=== PATIENT | male | born 1980 | race Two or more races ===

== ENCOUNTER 2024-03-21 05:29 | Inpatient (IN) | payer OTHER ==
[~2024-03-21] VITALS: Ht 185.4 cm; Wt 117.7 kg
[2024-03-21 07:35] VITALS: PULSE 63; RESP 16; O2SAT 98
[2024-03-21] MEDS: SODIUM CHLORIDE 0.9% 500 ML IV ONE (08:45)
[2024-03-21 09:23] LABS: Basophils # (auto) 0 10 ^3/uL (0-0.2); Basophils % (auto) 0.5 % (0.0-2.0); Eosinophils # (auto) 0.1 10 ^3/uL (0-0.8); Eosinophils % (auto) 1.5 % (0.0-7.0); Hematocrit 43.3 % (41.0-53.0); Hemoglobin 15.3 g/dL (13.5-17.5); Lymphocytes # (auto) 1.5 10 ^3/uL (0.4-5.4); Lymphocytes % (auto) 31.6 % (10.0-50.0); Mean Corpuscular Hemoglobin 30.8 pg (28.0-32.0); Mean Corpuscular Hgb Conc. 35.4 g/dL (32.0-36.0); Mean Corpuscular Volume 86.9 fL (80.0-100.0); Monocytes # (auto) 0.4 10 ^3/uL (0-1.3); Monocytes % (auto) 8.9 % (0.0-12.0); Neutrophils # (auto) 2.7 10 ^3/uL (1.6-8.6); Neutrophils % (auto) 57.5 % (37.0-80.0); Nucleated Red Blood Cells % 0.2 %; Platelet Count (auto) 109 10^3/uL (140-450); Red Blood Cells 4.98 10^6/uL (4.5-5.90); Red Cell Distribution Width 13.6 % (11.8-14.3); White Blood Cell 4.7 10^3/uL (4.4-10.8)
[2024-03-21 09:40] LABS: INR 0.98 (0.9-1.15); Partial Thromboplastin Time 26.3 SEC (24.5-34.5); Prothrombin Time 10.6 sec (9.3-11.8)
[2024-03-21 09:45] LABS: Alanine Aminotransferase 77 U/L (7-40); Albumin 4.2 g/dL (3.2-4.8); Alkaline Phosphatase 69 U/L (46-116); Anion Gap 6 (5-15); Aspartate Aminotransferase 45 U/L (13-40); BUN/Creatinine Ratio 13.3 (10.0-20.0); Blood Urea Nitrogen 17 mg/dL (9-23); Calcium 9.1 mg/dL (8.7-10.4); Carbon Dioxide 26 mmol/L (20-30); Chloride 109 mmol/L (98-107); Glucose 102 mg/dL (74-106); Magnesium 2.2 mg/dL (1.6-2.6); Potassium 4.2 mmol/L (3.5-5.1); Sodium 141 mmol/L (136-145)
[2024-03-21 09:46] LABS: Bilirubin, Total 1.1 mg/dL (0.2-1.0); Total Protein 6.5 g/dL (5.7-8.2)
[2024-03-21] MEDS: HYDROmorphone HCL 2 MG/ML VL/or syr IV ONE (10:29)
[2024-03-21] MEDS: METOCLOPRAMIDE HCL 5MG/ml INJ 2ml VIAL IV ONE (10:29)
[2024-03-21] MEDS: SODIUM CHLORIDE 0.9% 1,000 ML IV ONE (10:48)
[2024-03-21] MEDS ORDERED: NITROGLYCERIN 0.4 MG SL TAB SL PRN (12:15)
[2024-03-21] MEDS ORDERED: DOCUSATE SOD 100 MG CAP PO PRN (12:15)
[2024-03-21] MEDS ORDERED: ONDANSETRON HCL 4 MG/2 ML VIAL IV PRN (12:15)
[2024-03-21] MEDS: PANTOPRAZOLE 40 MG/10 ML VIAL INJ IV ONE (13:05)
[2024-03-21] MEDS: SODIUM CHLORIDE 0.9% 1,000 ML IV SCH (13:15)
[2024-03-21] MEDS: PANTOPRAZOLE 40 MG/10 ML VIAL INJ IV SCH (21:06)
[2024-03-22] VITALS (7 sets, daily range): BP systolic 121–145; BP diastolic 70–98; PULSE 56–68; RESP 16–20; TEMP 94.4–97.9; O2SAT 95–97
[2024-03-22] MEDS ORDERED: PANT40T PO (01:44)
[2024-03-22] MEDS ORDERED: ALBU108A5 INH (01:44)
[2024-03-22] MEDS ORDERED: SUMA50TA16 PO (01:44)
[2024-03-22] MEDS ORDERED: AMPH1TAB PO (01:44)
[2024-03-22 08:13] LABS: Basophils # (auto) 0 10 ^3/uL (0-0.2); Basophils % (auto) 0.5 % (0.0-2.0); Eosinophils # (auto) 0.1 10 ^3/uL (0-0.8); Eosinophils % (auto) 1.8 % (0.0-7.0); Hematocrit 43.6 % (41.0-53.0); Hemoglobin 15.2 g/dL (13.5-17.5); Lymphocytes # (auto) 1.4 10 ^3/uL (0.4-5.4); Mean Corpuscular Hemoglobin 30.4 pg (28.0-32.0); Mean Corpuscular Hgb Conc. 34.9 g/dL (32.0-36.0); Mean Corpuscular Volume 86.9 fL (80.0-100.0); Monocytes # (auto) 0.3 10 ^3/uL (0-1.3); Neutrophils # (auto) 2.5 10 ^3/uL (1.6-8.6); Neutrophils % (auto) 56.7 % (37.0-80.0); Nucleated Red Blood Cells % 0.2 %; Platelet Count (auto) 104 10^3/uL (140-450); Red Blood Cells 5.02 10^6/uL (4.5-5.90); Red Cell Distribution Width 13.3 % (11.8-14.3); White Blood Cell 4.4 10^3/uL (4.4-10.8)
[2024-03-22 08:34] LABS: Alanine Aminotransferase 71 U/L (7-40); Albumin 3.9 g/dL (3.2-4.8); Alkaline Phosphatase 65 U/L (46-116); Anion Gap 6 (5-15); Aspartate Aminotransferase 35 U/L (13-40); BUN/Creatinine Ratio 7.9 (10.0-20.0); Blood Urea Nitrogen 9 mg/dL (9-23); Calcium 9.3 mg/dL (8.7-10.4); Carbon Dioxide 24 mmol/L (20-30); Chloride 110 mmol/L (98-107); Glucose 103 mg/dL (74-106); Sodium 140 mmol/L (136-145); Total Protein 6.2 g/dL (5.7-8.2)
[2024-03-22] MEDS: MORPHINE SULFATE INJ 2 MG/ml SYRG IV PRN (09:15)
[2024-03-22] MEDS ORDERED: DICYCLOMINE HCL 10 MG CAP PO PRN (10:15)
[2024-03-22 10:42] LABS: Hepatitis B Surface Antigen Negative (Negative)
[2024-03-22 11:03] LABS: Hepatitis B Core IgM Negative; Hepatitis C Antibody Negative (Negative)
[2024-03-22] MEDS: GOLYTELY 4L KIT PO ONE (16:00)
[2024-03-22 16:31] LABS: Hepatitis A Ab IgM Negative
[2024-03-23] VITALS (11 sets, daily range): BP systolic 110–138; BP diastolic 62–91; PULSE 54–80; RESP 16–20; TEMP 97.4–98.2; O2SAT 96–99
[2024-03-23] MEDS: MAGNESIUM CITRATE SOLUTION 300 ML BTL PO ONE (05:06)
[2024-03-23] MEDS: GOLYTELY 4L KIT PO ONE (05:07)
[2024-03-23] MEDS ORDERED: ALBUTEROL SULF 2.5 MG/0.5ML(0.5%) NEB SOLN NEB PRN (08:00)
[2024-03-23] MEDS: AMPHETAMINE DEXTROAMPHETAMINE PO SCH (09:44)
[2024-03-23] MEDS: NICOTINE 14 MG/24HR TOPICAL PATCH TD SCH (09:44)
[2024-03-23] MEDS ORDERED: fentaNYL CITRATE 100 MCG/2 ML VL ONE (15:07)
[2024-03-23] MEDS ORDERED: MIDAZOLAM HCL 2MG/2ML 2ml VIAL (1mg/ml) ONE (15:08)
[2024-03-23] MEDS: ONDANSETRON HCL 4 MG/2 ML VIAL IV ONE (16:00)
[2024-03-23] MEDS ORDERED: ONDANSETRON HCL 4 MG/2 ML VIAL ONE (16:16)
[2024-03-23] MEDS: SUCRALFATE 1 GM/10 ML ORAL SUSP GT SCH (17:00)
[2024-03-23] MEDS: HYDROCORTISONE ACET 25 MG RECTAL SUPP PR SCH (22:00)
[2024-03-24] VITALS (7 sets, daily range): BP systolic 98–122; BP diastolic 52–73; PULSE 64–77; RESP 14–18; TEMP 36.8; O2SAT 93–100
[2024-03-24] MEDS ORDERED: PANT40T PO (13:45)
[2024-03-24] MEDS ORDERED: SUCR1SUS26 PO (13:45)
[2024-03-24] MEDS ORDERED: HYD25TP TOP (13:46)
== END 2024-03-24 14:55 | disposition home or self-care (01) | DRG 378 ==
LOC: ER 05:29 → OVERFLOW 12:24 → CENTRAL 03-22 01:17
PROVIDERS: ADMIT Internal Medicine; ATTEND Internal Medicine
PROC: 0DB48ZX Excision of Esophagogastric Junction, Via Natural or Artificial Opening Endoscopic, Diagnostic (ICD-10-PCS; 2024-03-23)
PROC: 0DBM8ZX Excision of Descending Colon, Via Natural or Artificial Opening Endoscopic, Diagnostic (ICD-10-PCS; 2024-03-23)
PROC: 0DBL8ZX Excision of Transverse Colon, Via Natural or Artificial Opening Endoscopic, Diagnostic (ICD-10-PCS; 2024-03-23)
PROC: 0DBP8ZX Excision of Rectum, Via Natural or Artificial Opening Endoscopic, Diagnostic (ICD-10-PCS; 2024-03-23)
PROC: 0DB98ZX Excision of Duodenum, Via Natural or Artificial Opening Endoscopic, Diagnostic (ICD-10-PCS; principal; 2024-03-23 15:06)
PROC: 0DB68ZX Excision of Stomach, Via Natural or Artificial Opening Endoscopic, Diagnostic (ICD-10-PCS; 2024-03-23 15:06)
DX: K57.31 Diverticulosis of large intestine without perforation or abscess with bleeding (principal); K22.10 Ulcer of esophagus without bleeding; R74.01 Elevation of levels of liver transaminase levels; K76.0 Fatty (change of) liver, not elsewhere classified; G43.909 Migraine, unspecified, not intractable, without status migrainosus; K21.9 Gastro-esophageal reflux disease without esophagitis; D69.6 Thrombocytopenia, unspecified; F90.9 Attention-deficit hyperactivity disorder, unspecified type; K44.9 Diaphragmatic hernia without obstruction or gangrene; K29.70 Gastritis, unspecified, without bleeding; K29.90 Gastroduodenitis, unspecified, without bleeding; K29.80 Duodenitis without bleeding; K64.8 Other hemorrhoids; K52.9 Noninfective gastroenteritis and colitis, unspecified; K31.9 Disease of stomach and duodenum, unspecified; Z79.899 Other long term (current) drug therapy
CPT/HCPCS: 36415; 76705; 80053; 80074; 80320; 82270; 82728; 83735; 84484; 85025; 85048; 85610; 85730; 86850; 86900; 86901; 93005; G0378; J2250; J2405; J2470